=== PATIENT | female | born 1995 | race Caucasian/White ===

== ENCOUNTER → 2019-02-19 | Outpatient (CLI) | payer OTHER ==
[2019-02-19 10:34] LABS: HCG, SERUM QUANTITATIVE < 1.0 MIU/ML
[2019-02-19 15:37] LABS: PROGESTERONE 0.21 NG/ML
== END ==
LOC: M LAB 09:32
PROVIDERS: ATTEND Obstetrics & Gynecology
DX: Z31.41 Encounter for fertility testing (principal)

== ENCOUNTER → 2019-02-22 | Outpatient (CLI) | payer OTHER ==
--- NOTE | 2019-02-22 08:14 | REP ---
Transvaginal pelvic sonography: History: Follicle study. Fertility exam. Findings: Uterine dimensions are 9.0 x 3.4 x 5.7 cm. Endometrial stripe is 1.2 cm in thickness. There is a trace of fluid in the endometrial canal. Septate uterine morphology. Overall dimensions of the right ovary today are 3.6 x 2.5 x 4.5 cm. There are two follicles in the right ovary measuring greater than a centimeter: 1.2 x 0.8, and 1.0 x 0.7 cm. In addition, the right ovary contains 28 follicles ranging in size from 0.2-0.9 cm. The left ovary dimensions are 4.2 x 3.2 x 3.1 cm. There is a 2.0 x 1.7 cm follicle in the left ovary and 44 follicles are seen in the left ovary ranging in size from 0.3-0.8 cm. No other abnormality. Impression: Ovarian follicle exam as above. Electronically Signed by Bal Love MD 02/22/2019 08:06 A
[2019-02-22 08:37] LABS: ESTRADIOL 263.9 PG/ML; PROGESTERONE 0.31 NG/ML
== END ==
LOC: M RAD 06:57
PROVIDERS: ATTEND Obstetrics & Gynecology
DX: Z31.41 Encounter for fertility testing (principal); N83.01 Follicular cyst of right ovary; N83.02 Follicular cyst of left ovary; Q51.3 Bicornate uterus

== ENCOUNTER → 2019-03-09 | Outpatient (CLI) | payer OTHER | LOC: M LAB 09:18 | PROVIDERS: ATTEND Obstetrics & Gynecology | DX: Z32.00 Encounter for pregnancy test, result unknown (principal) ==

== ENCOUNTER → 2019-03-12 | Outpatient (CLI) | payer OTHER ==
[2019-03-12 09:15] LABS: HCG, SERUM QUANTITATIVE < 1.0 MIU/ML
[2019-03-12 10:31] LABS: ESTRADIOL 31.5 PG/ML
--- NOTE | 2019-03-12 11:21 | REP ---
TRANSVAGINAL PELVIC ULTRASOUND, FOLLICLE STUDY: Transvaginal pelvic ultrasound performed. Uterus measures 7.1 x 3.2 x 5.4 cm. Endometrial thickness is 5 mm. Trace free fluid is seen in the cul-de-sac. Right ovary measures 3.4 x 2.8 x 2.0 cm. Multiple subcentimeter follicles are seen in the right ovary between 3 and 7 mm. Left ovary measures 4.2 x 2.4 x 2.3 cm. Multiple subcentimeter follicles are seen measuring between 3 and 9 mm. Electronically Signed by Johnei Arvizu MD 03/12/2019 04:35 P
== END ==
LOC: M RAD 08:17
PROVIDERS: ATTEND Obstetrics & Gynecology
DX: Z31.41 Encounter for fertility testing (principal)

== ENCOUNTER → 2019-03-21 | Outpatient (CLI) | payer OTHER ==
[2019-03-21 09:30] LABS: ESTRADIOL 122.3 PG/ML; LUTEINIZING HORMONE 6.2 mIU/mL; PROGESTERONE 0.28 NG/ML
--- NOTE | 2019-03-21 13:38 | REP ---
Pelvic ultrasound, endovaginal imaging for follicle analysis: Right ovary: There is one follicle greater than 10 mm measuring 15 x 16 mm. Additionally, there are 25 follicle measuring 1.9 - 6.7 mm. Right ovary is normal size measuring 4.1 x 2.5 x 2.5 cm. Left ovary: There are three follicles greater than 10 mm as follows: 10 x 4.8 mm, 10 x 8.9 mm, 18.7 x 19.4 mm. Additionally, there are 28 follicles measuring 1.9 - 8.1 mm. Left ovary is normal size measuring 4.1 x 3.43 point 0 cm. The uterus is anteverted and normal size measuring 8.3 x 3.3 x 5.2 cm. The endometrium has a 7.9 ml and has a trilaminar appearance. Electronically Signed by Johnie Hoang MD 03/21/2019 01:28 P
== END ==
LOC: M RAD 07:34
PROVIDERS: ATTEND Obstetrics & Gynecology
DX: Z31.41 Encounter for fertility testing (principal)

== ENCOUNTER → 2019-04-07 | Outpatient (CLI) | payer OTHER | LOC: M LAB 09:34 | PROVIDERS: ATTEND Obstetrics & Gynecology | DX: Z32.00 Encounter for pregnancy test, result unknown (principal) ==

== ENCOUNTER → 2019-04-09 | Outpatient (CLI) | payer OTHER ==
[2019-04-09 08:39] LABS: THYROID STIMULATING HORMONE 2.03 uIU/ML (0.358-3.740)
== END ==
LOC: M LAB 07:35
PROVIDERS: ATTEND Obstetrics & Gynecology
DX: Z32.01 Encounter for pregnancy test, result positive (principal); Z3A.00 Weeks of gestation of pregnancy not specified

== ENCOUNTER → 2019-04-16 | Outpatient (CLI) | payer OTHER | LOC: M LAB 09:49 | PROVIDERS: ATTEND Obstetrics & Gynecology | DX: Z31.41 Encounter for fertility testing (principal) ==

== ENCOUNTER 2019-08-18 13:01 | Outpatient (CLI) | payer OTHER ==
[~2019-08-18] VITALS: Ht 165.1 cm; Wt 93.7 kg
[2019-08-18 13:16] VITALS: BP 128/69
--- NOTE | 2019-08-18 14:49 | REP ---
Obstetric sonography: History: Rupture of membranes. For estimated weight, cervical length and amniotic fluid. Findings: Scanning through the gravid uterus demonstrates a single intrauterine gestation in a cephalic lie. motion is observed and heart rate is recorded at 155 beats per minute. A posterior grade 0 placenta is seen. Amniotic fluid is subjectively significantly decreased. Closed cervical length measured transabdominally and transvaginally is 1.4 cm. No extrauterine abnormalities observed. There is some cervical funneling. The deepest pocket of amniotic fluid measured is 1.0 cm. The following anatomic structures are identified at the time of today's study and felt to be unremarkable: cranium, choroid plexus, cavum, cerebellum and posterior fossa, left-sided stomach, abdominal wall cord insertion, three-vessel cord, kidneys, bladder, spine, lower extremities. Biometry chart: BPD 5.9 cm = 24 weeks 1 day HC 21.9 cm = 23 weeks 6 days AC 19.4 cm = 24 weeks 1 day FL 4.2 cm = 23 weeks 4 days HL 3.9 cm = 24 weeks 0 days HC/AC ratio 1.13. Cephalic index normal 0.75. Estimated weight 642 grams, 1 pound 6 ounces, 71st percentile for 23 weeks 1 day. GABRIEL 1.0 cm (9.8 to 21.8 cm). Impression: Living single intrauterine gestation at 24 weeks 0 days by today's composite criteria. PORFIRIO by today's sonography December 08, 2019. Amniotic fluid is virtually absent. Cervical effacement 1.4 cm with some funneling. Electronically Signed by Bal Love MD 08/18/2019 03:15 P
[2019-08-18 14:51] LABS: HEMOGLOBIN 11.2 g/dl (12.0-15.5); MEAN CORPUSCULAR HEMOGLOBIN 27.2 pg (27.0-33.0); MEAN CORPUSCULAR HGB CONC 32.9 g/dl (32.0-36.5); MEAN CORPUSCULAR VOLUME 82.5 fl (80.0-96.0); PLATELET COUNT, AUTOMATED 292 10^3/uL (150-450); RED BLOOD COUNT 4.12 10^6/uL (4.00-5.40); WHITE BLOOD COUNT 10.8 10^3/uL (4.0-10.0)
[2019-08-18] MEDS ORDERED: BETAMETHASONE SOLUSPAN 6MG/ML INJ 5ML (J0702) As Ordered ONE (14:56)
[2019-08-18] MEDS ORDERED: BETAMETHASONE SOLUSPAN 6MG/ML INJ 5ML (J0702) IM SCH (15:15)
[2019-08-18] MEDS ORDERED: MAG SULF 1GM/100ML (MAG RUN) 1 GM in IV 1 EA IV SCH (15:15)
[2019-08-18] MEDS ORDERED: MAGNESIUM *L&D* 4 GM/100 ML BAG (40MG/ML) (J3475) As Ordered ONE (15:16)
[2019-08-18] MEDS ORDERED: MAGNESIUM *L&D* 4 GM/100 ML BAG (40MG/ML) (J3475) IV ONE (15:20)
[2019-08-18] MEDS ORDERED: AMPICILLIN 1 GM VIAL As Ordered ONE (15:28)
[2019-08-18] MEDS ORDERED: MAGNESIUM SULFATE 4% INJ 20GM/500ML (40MG/ML) (J3475) As Ordered ONE (15:28)
[2019-08-18] MEDS ORDERED: AMPICILLIN SOD 1 GM in D5W 50 ML IV ONE (15:30)
[2019-08-18] MEDS ORDERED: PRENTAB9 PO (15:38)
[2019-08-18] MEDS ORDERED: MAG SULF IV SCH (16:00)
[2019-08-18] MEDS ORDERED: AZITHROMYCIN INJ 500 MG, VIAL MATE ADAPTER 1 EACH in D5W 250 ML IV ONE (16:00)
--- NOTE | 2019-08-19 06:29 | HPE ---
DATE OF ADMISSION: 08/18/2019 HISTORY: 24-year-old, 1, para 0, last menstrual period (LMP) 03/10/2019, estimated date of confinement (EDC) 12/14/2019, at 23 and 1 weeks' of gestation woke up this morning after voiding and had a spontaneous rupture of membranes of clear liquor. No contractions. No discharge. She continued to leak until she came into labor and delivery. Her risk factors are her body mass index (BMI) is 33.11. She has an arcuate uterus. Her cervix on 07/26/2019 at her anatomy ultrasound, which was normal, was 2.98 cm. She also has a polycystic ovarian syndrome (PCOS) and primary infertility. Labs are A positive, HIV negative, hepatitis negative, RPR negative, rubella immune. Varicella immune. Urine was negative. Gonorrhea and chlamydia are negative. 1-hour glucose was 125. Her CF was negative. On examination, no distress. Symphysis fundus height is for 23 weeks, the category 1 strip with no contractions, moderate variability, normal baseline. No decelerations. The occasional acceleration was noted. Her ultrasound showed that she had an amniotic fluid index (GABRIEL) of 1.0, vertex presenting, estimated weight of 642 grams. Cervix was 1.4 cm with some funneling. heart rate was 155 beats per minute. Limited anatomy was found to be normal. Sonographically, the estimated gestational age is 24 weeks zero days. Our plan of management is as follows: Bee steroid complete betamethasone 12.5 mg every 12 hours times 24 hours, magnesium sulfate 4 grams IV bolus for neuro prophylaxis followed by 1 gram an hour for 24 hours, azithromycin 5 mg IV times one dose, ampicillin 1 gram IV times one dose prior to discharge to [facility]. We consulted Dr. James for transfer and after discussing the history he expressed positive consent to take the patient. We discussed with the patient risks and benefits of transfer, risks and benefits of staying, the idea of being that a level 3 nursery be more appropriate at previable at 23 weeks 1 day. Long-term is at the present time uncertain and this discussion will take place with the [facility] transfer physician. The rest the examination is unremarkable. Normocephalic, atraumatic. Neck full range of motion. Pupils equal and reactive to light. Distal pulses symmetric. No evidence of deep venous thrombosis (DVT), pulmonary embolism (PE) or superficial phlebitis. Chest is clear bilaterally to bases. No wheezes or rhonchi. No costovertebral angle (CVA) tenderness. Abdomen soft, four quadrant bowel sounds are noted. She does have some facial piercings and some acne and a bit of hirsutism. She is not complaining of cough, wheezes, shortness of breath or dyspnea on exertion. No nausea, vomiting, diarrhea or constipation. She has no diabetic issues. Endocrinopathy issues are PCOS. She does not smoke, drink, abuse drugs. She is to soldier. No domestic violence. In summary, we have a 23 and 1 week of gestation with no contractions, no bleeding, but defined spontaneous rupture of membranes both by ultrasound and Nitrazine was positive. The patient is presently in the transition mode for transfer.
== END 2019-08-18 16:05 ==
LOC: M LDO 13:01
PROVIDERS: ATTEND Obstetrics & Gynecology
DX: O42.912 Preterm premature rupture of membranes, unspecified as to length of time between rupture and onset of labor, second trimester (principal); O34.592 Maternal care for other abnormalities of gravid uterus, second trimester; Q51.810 Arcuate uterus; O34.82 Maternal care for other abnormalities of pelvic organs, second trimester; E28.2 Polycystic ovarian syndrome; O09.02 Supervision of pregnancy with history of infertility, second trimester; Z3A.23 23 weeks gestation of pregnancy; Z68.33 Body mass index [BMI] 33.0-33.9, adult
CPT/HCPCS: 36415; 76811; 76817; 85027; 96374; 96375; G0378; G0463; J0456; J0702; J3475

== ENCOUNTER 2020-01-16 10:00 | Emergency (ER) | payer OTHER ==
[~2020-01-16 10:00] MED LIST: PRENTAB9 PO
--- NOTE | 2020-02-28 17:13 | ECGEPIP ---
NORMAL SINUS RHYTHM NONSPECIFIC ST & T-WAVE CHANGES SEE SCANNED DOWNTIME REPORT MTDD
[2020-03-02 11:34] LABS: BASO % 0.3 % (0.0-1.0); EOS # 0.1 10^3/uL (0.0-0.5); HEMATOCRIT 45.6 % (36.0-47.0); HEMOGLOBIN 14.4 g/dl (12.0-15.5); LYMPH # 2.6 10^3/uL (1.5-5.0); LYMPH % 27.4 % (24.0-44.0); MEAN CORPUSCULAR HEMOGLOBIN 26.1 pg (27.0-33.0); MEAN CORPUSCULAR HGB CONC 31.6 g/dl (32.0-36.5); MEAN CORPUSCULAR VOLUME 82.8 fl (80.0-96.0); MONO # 0.5 10^3/uL (0.0-0.8); MONO % 5.1 % (0.0-5.0); NEUTROPHILS # 6.3 10^3/uL (1.5-8.5); PLATELET COUNT, AUTOMATED 366 10^3/uL (150-450); RED BLOOD COUNT 5.51 10^6/uL (4.00-5.40); WHITE BLOOD COUNT 9.6 10^3/uL (4.0-10.0)
[2020-04-11 14:14] LABS: ALBUMIN 4.2 GM/DL (3.2-5.2); ALT/SGPT 24 U/L (12-78); BILIRUBIN,DIRECT < 0.1 MG/DL (0.0-0.2); BILIRUBIN,TOTAL 0.3 MG/DL (0.2-1.0); BLOOD UREA NITROGEN 16 MG/DL (7-18); CALCIUM LEVEL 9.7 MG/DL (8.5-10.1); CARBON DIOXIDE LEVEL 30 MEQ/L (21-32); CHLORIDE LEVEL 105 MEQ/L (98-107); CREATININE FOR GFR 0.95 MG/DL (0.55-1.30); GLOMERULAR FILTRATION RATE > 60.0 (>60); GLUCOSE, FASTING 88 MG/DL (70-100); LIPASE 104 U/L (73-393); SODIUM LEVEL 138 MEQ/L (136-145); TOTAL PROTEIN 7.7 GM/DL (6.4-8.2)
[2020-04-11 14:15] LABS: HCG, SERUM QUALITATIVE NEGATIVE (NEGATIVE)
== END 2020-01-16 16:20 | disposition home or self-care (01) ==
LOC: M ED 10:00
DX: K80.20 Calculus of gallbladder without cholecystitis without obstruction (principal)

== ENCOUNTER 2020-03-18 08:19 | Day surgery (SDC) | payer OTHER ==
[~2020-03-18] VITALS: Ht 165.1 cm; Wt 88.8 kg
[~2020-03-18 08:19] MED LIST changes: +KETOROLAC 60MG 2ML VIAL As Ordered ONE; +LIDOCAINE 2% 100MG/5ML SDV (FOR ANES.) As Ordered ONE; +LR 1,000 ML IV ONE; +MIDAZOLAM INJ 2MG/2ML VIAL (J2250 PER 1MG) As Ordered ONE; +ONDANSETRON 4MG/2ML VIAL As Ordered ONE; +ROCURONIUM BROMIDE 50 MG/5 ML VIAL As Ordered ONE; +SUGAMMADEX SODIUM 500 MG/5 ML VIAL (BRIDION) As Ordered ONE; +ceFAZolin SOD 1 GM in D5W MINI-BAG PLUS 50 ML IV ONE; +dexameTHASONE 4 MG/ML 1ML VIAL (J1100 PER 1MG) As Ordered ONE; +fentaNYL 100 MCG/2 ML INJECTION (J3010) As Ordered ONE; +propofoL 200 MG/20 ML VIAL As Ordered ONE
[2020-03-18] MEDS ORDERED: BUPIVACAINE/EPIN 0.25% 30 ML VIAL As Ordered ONE (09:53)
[2020-03-18] MEDS ORDERED: fentaNYL 100 MCG/2 ML INJECTION (J3010) As Ordered ONE ×2 (10:34→11:26)
[2020-03-18] MEDS ORDERED: ROCURONIUM BROMIDE 50 MG/5 ML VIAL As Ordered ONE (10:40)
[2020-03-18] MEDS ORDERED: LR 1,000 ML IV SCH ×2 (11:15→11:45)
[2020-03-18] MEDS ORDERED: traMADol 50 MG TAB PO PRN (11:15)
[2020-03-18] MEDS ORDERED: oxyCODONE 5MG TAB As Ordered ONE (11:25)
[2020-03-18] MEDS: fentaNYL 100 MCG/2 ML INJECTION (J3010) IV PRN ×4 (11:30→11:49)
[2020-03-18] MEDS: oxyCODONE 5MG TAB PO PRN ×2 (11:36→12:06)
[2020-03-18] MEDS ORDERED: ONDANSETRON 4MG/2ML VIAL IV PRN (11:45)
[2020-03-18 13:10] VITALS: BP 130/79
--- NOTE | 2020-04-15 07:33 | RO ---
DATE OF OPERATION: 03/18/2020 PREOPERATIVE DIAGNOSIS: History of symptomatic gallstones/cholecystitis. POSTOPERATIVE DIAGNOSIS: History of symptomatic gallstones/cholecystitis. PROCEDURE: Laparoscopic cholecystectomy. SURGEON: Bonilla Judd M.D. ANESTHESIA: General endotracheal anesthesia. ESTIMATED BLOOD LOSS: Minimal. FLUIDS: Crystalloid. BRIEF PROCEDURE SUMMARY: The patient was brought to the operating room and was given general anesthesia. After adequate anesthesia and preoperative antibiotics were given, the patient was prepped and draped in the usual sterile fashion. Next, a periumbilical incision was made with the skin knife. Blunt dissection was carried down to the fascia. The fascia was entered with a Veress needle and insufflated to 15 mm of pressure. A dilating 10-mm trocar was placed, and under direct visualization, an epigastric and two lateral trocars were placed. The patient was placed in the reverse Trendelenburg position. The gallbladder was grasped and retracted superiorly. There were some omentum/adhesions up against the gallbladder/neck of the gallbladder, but overall, no significant inflammatory changes at this time. There was a little bit of edema in the gallbladder wall, which was seen and noticed during dissection. However, the peritoneum was taken down on the lateral side and then across the anterior surface of the neck of the gallbladder, and then medially to the cystic duct and cystic duct node area. Once this was identified better and a window on the lateral side was created quite nicely and then across the front and then a window between the cystic artery and cystic duct was created, a good critical view of safety was obtained. The cystic artery was clipped proximally and distally and transected. The window behind the neck of the gallbladder was even enlarged at this time making a much more visible critical view of safety and the cystic duct was clipped proximally and distally and transected. The gallbladder was removed from the gallbladder bed, brought out in an EndoCatch bag through the umbilicus. The right upper quadrant was copiously irrigated until clear. All trocars were removed under direct visualization. Then, 0-Vicryl was used to close the fascia at the umbilicus and all incisions were closed with 4-0 Vicryl. Steri-Strips and a dry sterile dressing were applied. The patient was awakened and extubated and brought to the recovery room awake, alert, and hemodynamically stable. Sponge and needle counts were correct x2. MTDD
== END 2020-03-18 13:27 | disposition home or self-care (01) ==
LOC: M SDC 08:19
PROVIDERS: ATTEND Surgery
DX: K80.10 Calculus of gallbladder with chronic cholecystitis without obstruction (principal); E28.2 Polycystic ovarian syndrome; F41.9 Anxiety disorder, unspecified; F32.9 Major depressive disorder, single episode, unspecified
CPT/HCPCS: 47562; 81025; 88304; J0690; J1100; J1885; J2250; J2405; J3010

== ENCOUNTER → 2020-04-09 | Outpatient (CLI) | payer OTHER ==
[~2020-04-09] MED LIST changes: +ISOVUE-370 76% 100ML VIAL As Ordered ONE; -KETOROLAC 60MG 2ML VIAL As Ordered ONE; -LIDOCAINE 2% 100MG/5ML SDV (FOR ANES.) As Ordered ONE; -LR 1,000 ML IV ONE; -MIDAZOLAM INJ 2MG/2ML VIAL (J2250 PER 1MG) As Ordered ONE; -ONDANSETRON 4MG/2ML VIAL As Ordered ONE; -ROCURONIUM BROMIDE 50 MG/5 ML VIAL As Ordered ONE; -SUGAMMADEX SODIUM 500 MG/5 ML VIAL (BRIDION) As Ordered ONE; -ceFAZolin SOD 1 GM in D5W MINI-BAG PLUS 50 ML IV ONE; -dexameTHASONE 4 MG/ML 1ML VIAL (J1100 PER 1MG) As Ordered ONE; -fentaNYL 100 MCG/2 ML INJECTION (J3010) As Ordered ONE; -propofoL 200 MG/20 ML VIAL As Ordered ONE
--- NOTE | 2020-04-09 12:51 | ROOPDOC ---
[facility] Report Of Operation Report of Operation DATE OF PROCEDURE: 04/09/20 REPRODUCTIVE ENDOCRINOLOGY HSG PROCEDURE NOTE PRE-PROCEDURE DIAGNOSIS: 1) Infertility 2) Possible septate vs arcuate uterus based on prior evaluation POST-PROCEDURE DIAGNOSIS: Same PHYSICIAN PERFORMING PROCEDURE: Paolo Mendosa DO CONSENT: The HSG procedure, indication, risks, and benefits were discussed with the patient and informed written consent was obtained. PATIENT COUNSELLED IN REGARDS TO HSG RISKS AND BENEFITS TO INCLUDE INFECTION, DISRUPTION OF , BLEEDING, AND PAIN. FINAL TIME OUT PERFORMED IMMEDIATELY PRIOR TO HSG. PROCEDURE: STERILE SPECULUM PLACED CERVIX CLEANSED WITH BETADINE TRIPLE SWAB UTERUS SOUNDED TO 8CM TENACULUM UTILIZED (YES ) HSG CATHETER PASSED, BALLOON INFLATED APPROX 50mL OF ISOVUE CONTRAST WAS INFUSED AP AND OBLIQUE IMAGES WERE OBTAINED PRELIMINARY FINDINGS: 1) UTERINE FINDINGS septate vs bicornuate uterus 2) LEFT FALLOPIAN TUBE PATENT 3) RIGHT FALLOPIAN TUBE PATENT PATIENT TOLERATED THE PROCEDURE WELL DISCHARGED TO HOME WITH PRECAUTIONS ANTIBIOTICS RECOMMENDED: NO COMPLICATIONS: NONE DISCHARGE INSTRUCTIONS GIVEN PATIENT TO F/U WITH ORDERING PROVIDER FOR FINAL IMPRESSION AND CLINICAL CORRELATION APPROX TIME: 10 MIN COUNSELLING [address] Restrepo present at procedure PAOLO MENDOSA DO Apr 09, 2020 12:51
--- NOTE | 2020-04-09 17:05 | REP ---
INDICATION: INFERTILITY. COMPARISON: None. TECHNIQUE: The endometrium was cannulated by the referring sales appointment coordinator and contrast was injected under fluoroscopic guidance. 0.7 minutes of fluoroscopy was utilized. Study was recorded by THO Borrero FINDINGS: Contrast fills a smooth endometrium. There is an indentation of the superior wall of the endometrium giving the uterus a bicornuate configuration. There is prompt symmetric filling of the isthmic and ampullary segments of the fallopian tubes bilaterally. Prompt bilateral and symmetric peritoneal spillage was documented. IMPRESSION: 1. Bicornuate uterus. 2. Bilateral tubal patency is documented. No other abnormality. <Electronically signed by Hipolito Love > 04/09/20 [id number]
== END ==
LOC: M RADPRO 11:43
PROVIDERS: ATTEND Obstetrics & Gynecology
DX: N97.9 Female infertility, unspecified (principal); E28.2 Polycystic ovarian syndrome; Q51.3 Bicornate uterus
CPT/HCPCS: 58340; 74740; Q9967

== ENCOUNTER → 2020-04-22 | Outpatient (CLI) | payer OTHER ==
[~2020-04-22] MED LIST changes: -ISOVUE-370 76% 100ML VIAL As Ordered ONE
--- NOTE | 2020-04-22 09:26 | REP ---
INDICATION: BICORNUATE UTERUS ANATOMY SHAPE. COMPARISON: Hysterosalpingogram 04/09/2020, ultrasound 03/21/2019 TECHNIQUE: Axial T1 with fat suppressed T1 and T2 coronal images, sagittal fat-suppressed and standard T2 and angled axial T2 coronal to the fundus were provided diffusion-weighted images were also obtained in that same coronal plane to the uterus. FINDINGS: Uterus is not enlarged. It has a length of 8.1 by AP 3.6 by 6.2 cm transverse. The central endometrial stripe is homogeneous and hyperintense on the T2 sequence submucosal region is slightly hypointense and myometrium homogeneous and without mass. There is no uterine contour abnormality. The fundal contour is rounded and not depressed. With particular attention to the T2 and diffusion-weighted images coronal to the plane of the uterus, the uterine configuration is arcuate. I do not see a septum. The ovaries are not enlarged and show numerous subcentimeter follicles bilaterally as on the endovaginal ultrasound 03/21/2019. No adnexal mass. There is no fluid in the cul-de-sac. See no pelvic lymphadenopathy. Visualized bones unremarkable bladder partially filled. No dilated bowel loops inguinal or pelvic lymphadenopathy nor other significant finding IMPRESSION: Confirmation that the uterine anatomic findings represent arcuate uterus with a rounded fundal contour; no septum or separate horns to suggest a bicornuate uterus. Bilateral ovaries show numerous subcentimeter follicles throughout. No pelvic free fluid. Nothing acute. <Electronically signed by King Burnette > 04/22/20 [id number]
== END ==
LOC: M RAD 07:30
PROVIDERS: ATTEND Obstetrics & Gynecology
DX: Q51.3 Bicornate uterus (principal)

== ENCOUNTER → 2020-10-22 | Outpatient (CLI) | payer OTHER ==
[2020-10-22 12:02] LABS: HCG, SERUM QUANTITATIVE < 1.0 MIU/ML
[2020-10-22 13:10] LABS: ESTRADIOL 38.2 PG/ML
== END ==
LOC: M LAB 10:46
PROVIDERS: ATTEND Obstetrics & Gynecology
DX: Z32.00 Encounter for pregnancy test, result unknown (principal); Z31.41 Encounter for fertility testing

== ENCOUNTER → 2020-10-30 | Outpatient (CLI) | payer OTHER ==
--- NOTE | 2020-10-30 10:00 | REP ---
INDICATION: INFERTILITY- STAT LABS AFTER COMPARISON: 03/21/2019 TECHNIQUE: Transvaginal pelvic ultrasound for detailed evaluation of the uterus and adnexa. FINDINGS: Normal anteverted uterus measures 8.2 x 3.9 x 6.4 cm. The endometrial complex measures 7.3 mm thickness. No discrete uterine or endometrial abnormalities are appreciated. Right ovary measures 4.2 x 2.7 x 2.8 cm and includes 8 x 13 mm follicle along with 14 subcentimeter follicles measuring between 2.4 and 8.9 mm. Left ovary measures 4.8 x 3.3 x 3.1 cm and includes 16 x 17 mm and 10 x 7 mm follicles along with approximately 30 subcentimeter follicles measuring between 2.3 and 8.9 mm. IMPRESSION: Predominantly subcentimeter follicles noted. <Electronically signed by Dannie Rodríguez > 10/30/20 [id number]
[2020-10-30 13:17] LABS: ESTRADIOL 66.9 PG/ML; LUTEINIZING HORMONE 6.3 mIU/mL; PROGESTERONE 0.4 NG/ML
== END ==
LOC: M RAD 09:18
PROVIDERS: ATTEND Obstetrics & Gynecology
DX: Z31.41 Encounter for fertility testing (principal)

== ENCOUNTER → 2020-11-03 | Outpatient (CLI) | payer OTHER ==
--- NOTE | 2020-11-03 10:59 | REP ---
INDICATION: ENCOUNTER FOR FERTILITY TESTING/LABS 1ST COMPARISON: 10/30/2020 TECHNIQUE: Transabdominal and transvaginal pelvic ultrasound. FINDINGS: Anteverted uterus measures 9.4 x 4.7 x 6.2 cm. The endometrial complex measures 11 mm thickness. Right ovary measures 4.9 x 2.1 x 3.4 cm and includes 11 mm follicle along with 10 subcentimeter follicles between 3 and 8 mm. Left ovary measures 4.6 x 3.1 x 3.1 cm and includes 24 mm follicle along with roughly 30 subcentimeter follicles between 2 and 8 mm. IMPRESSION: Primarily subcentimeter follicles as described above. <Electronically signed by Dannie Rodríguez > 11/03/20 [id number]
[2020-11-03 13:17] LABS: ESTRADIOL 239.6 PG/ML; LUTEINIZING HORMONE 44.3 mIU/mL; PROGESTERONE 0.71 NG/ML
== END ==
LOC: M RAD 10:12 → M LAB 10:12
PROVIDERS: ATTEND Obstetrics & Gynecology Reproductive Endocrinology
DX: Z31.41 Encounter for fertility testing (principal)

== ENCOUNTER → 2020-11-19 | Outpatient (CLI) | payer OTHER ==
--- NOTE | 2020-11-19 11:10 | REP ---
INDICATION: INFERTILITY PT HAS LABS AFTER. COMPARISON: 11/03/2020. TECHNIQUE: Transvaginal pelvic ultrasound performed to evaluate ovarian follicles. FINDINGS: The uterus measures 8.9 x 4.0 x 6.4 cm. The endometrial thickness is approximately 5 mm. Trace free fluid is seen in the posterior cul-de-sac. Right ovary measures 4.1 x 2.6 x 2.8 cm. Multiple subcentimeter follicles are seen in the right ovary. Left ovary measures 4.8 x 2.2 x 2.4 cm. There is a 12 x 6 mm dominant follicle present. Multiple subcentimeter follicles are also present in the left ovary. There is a cystic structure in the left ovary 12 x 6 mm which contains thin internal septations and low-level echoes. IMPRESSION: Ovarian follicles as discussed above. <Electronically signed by Johnie Arvizu > 11/19/20 1103
[2020-11-19 12:11] LABS: HCG, SERUM QUANTITATIVE < 1.0 MIU/ML
[2020-11-19 12:30] LABS: ESTRADIOL 43.5 PG/ML
== END ==
LOC: M LAB 10:29
PROVIDERS: ATTEND Obstetrics & Gynecology
DX: Z31.41 Encounter for fertility testing (principal)

== ENCOUNTER → 2020-11-28 | Outpatient (CLI) | payer OTHER ==
--- NOTE | 2020-11-28 09:20 | REP ---
INDICATION: INFERTILITY COMPARISON: None. TECHNIQUE: Transvaginal pelvic ultrasound. FINDINGS: Anteverted uterus measures 8.1 x 4.2 x 6.1 cm. The endometrial complex measures 9.8 mm thickness. Small amount of free fluid in the left hemipelvis noted. Right ovary measures 5.1 x 3.5 x 3.6 cm and includes 18 x 21 mm follicle and roughly 29 sub cm follicles measuring between 2.3 and 6.8 mm. Left ovary measures 4.0 x 2.1 x 2.3 cm and includes 28 sub cm follicles measuring between 2.0 and 8.9 mm. IMPRESSION: Predominantly subcentimeter follicles. <Electronically signed by Dannie Rodríguez > 11/28/20 [id number]
[2020-11-28 09:51] LABS: ESTRADIOL 113.3 PG/ML; PROGESTERONE 0.24 NG/ML
== END ==
LOC: M LAB 08:27 → M RAD 08:27
PROVIDERS: ATTEND Obstetrics & Gynecology
DX: Z31.41 Encounter for fertility testing (principal); N83.00 Follicular cyst of ovary, unspecified side

== ENCOUNTER → 2020-12-16 | Outpatient (CLI) | payer OTHER | LOC: M LAB 09:02 | PROVIDERS: ATTEND Obstetrics & Gynecology | DX: Z32.00 Encounter for pregnancy test, result unknown (principal) ==

== ENCOUNTER → 2020-12-18 | Outpatient (CLI) | payer OTHER ==
[2020-12-18 10:12] LABS: THYROID STIMULATING HORMONE 1.92 uIU/ML (0.358-3.740)
== END ==
LOC: M LAB 08:58
PROVIDERS: ATTEND Nurse Practitioner
DX: Z31.41 Encounter for fertility testing (principal)

== ENCOUNTER → 2020-12-25 | Outpatient (CLI) | payer OTHER | LOC: M LAB 09:31 | PROVIDERS: ATTEND Obstetrics & Gynecology | DX: Z31.41 Encounter for fertility testing (principal) ==

== ENCOUNTER → 2021-03-11 | Outpatient (CLI) | payer OTHER ==
--- NOTE | 2021-03-11 11:50 | REP ---
INDICATION: CERVIX LENGTH PREG 16+ WKS COMPARISON: None. TECHNIQUE: Transabdominal and transvaginal obstetrical ultrasound with color Doppler evaluation. FINDINGS: Examination demonstrates a single live intrauterine in variable/breech presentation. motion is identified by technologist. Placenta is noted posteriorly and grade 0 without evidence for placenta previa or abruption. Amniotic fluid volume is normal. Cervix measures 4.1 cm in length and appears closed. While there is no evidence for Vasa previa, technologist notes a presumed maternal vein in the myometrium adjacent to the cervical os. Selected gestational age: 16 weeks 3 days with PORFIRIO 08/23/2021. FHR equals 171 beats per minute. IMPRESSION: Cervix measures 4.1 cm in length and appears closed. Technologist describes a maternal vein adjacent to the cervical os, but no obvious evidence for Vasa previa. Consider short-term re-evaluation at the time of anatomical assessment. <Electronically signed by Dannie Rodríguez > 03/11/21 [id number]
== END ==
LOC: M RAD 10:54
PROVIDERS: ATTEND Obstetrics & Gynecology
DX: Z34.92 Encounter for supervision of normal pregnancy, unspecified, second trimester (principal); Z3A.16 16 weeks gestation of pregnancy

== ENCOUNTER 2021-08-08 22:24 | Outpatient (CLI) | payer OTHER ==
[~2021-08-08] VITALS: Ht 165.1 cm; Wt 100.0 kg
[2021-08-08 22:43] VITALS: BP 128/80
[2021-08-08] MEDS ORDERED: MAGN400C2 PO (22:46)
[2021-08-08] MEDS ORDERED: HOME MED LIST COMPLETE! XX SCH (22:50)
[2021-08-09] MEDS ORDERED: FLUCONAZOLE 50MG TABLET PO ONE
[2021-08-13] MEDS ORDERED: STOO100C25 PO (10:43)
== END 2021-08-08 23:40 | disposition home or self-care (01) ==
LOC: M LDO 22:24
PROVIDERS: ATTEND Advanced Practice Midwife
DX: O26.893 Other specified pregnancy related conditions, third trimester (principal); Z3A.37 37 weeks gestation of pregnancy; R25.2 Cramp and spasm; O34.211 Maternal care for low transverse scar from previous cesarean delivery; Z87.51 Personal history of pre-term labor
CPT/HCPCS: 59025; G0378; G0463

== ENCOUNTER 2021-08-18 00:40 | Inpatient (IN) | payer OTHER ==
[~2021-08-18] VITALS: Ht 165.1 cm; Wt 103.5 kg
[2021-08-18] VITALS (11 sets, daily range): BP systolic 117–180; BP diastolic 57–89
[~2021-08-18 00:40] MED LIST changes: +MAGN400C2 PO; +STOO100C25 PO
[2021-08-18] MEDS ORDERED: ceFAZolin SOD 2 GM in IV 1 EA IV ONE (01:40)
[2021-08-18] MEDS ORDERED: LR 1,000 ML IV SCH (01:40)
[2021-08-18] MEDS ORDERED: AZITHROMYCIN INJ 500 MG, VIAL MATE ADAPTER 1 EACH in NS 250 ML IV ONE (01:50)
[2021-08-18 02:18] LABS: HEMATOCRIT 40.1 % (36.0-47.0); MEAN CORPUSCULAR HEMOGLOBIN 25.7 pg (27.0-33.0); MEAN CORPUSCULAR HGB CONC 32.4 g/dl (32.0-36.5); MEAN CORPUSCULAR VOLUME 79.2 fl (80.0-96.0); PLATELET COUNT, AUTOMATED 246 10^3/uL (150-450); RED BLOOD COUNT 5.06 10^6/uL (4.00-5.40); WHITE BLOOD COUNT 10.5 10^3/uL (4.0-10.0)
[2021-08-18] MEDS ORDERED: OXYTOCIN INJ 10 UNITS/ML VIAL (J2590) As Ordered ONE (03:41)
[2021-08-18] MEDS ORDERED: MORPHINE PRES-FREE INJ 10 MG/10 ML VIAL (J2274) As Ordered ONE (03:42)
[2021-08-18] MEDS ORDERED: ONDANSETRON 4MG/2ML VIAL IV PRN ×3 (04:02→06:20)
[2021-08-18] MEDS ORDERED: METOCLOPRAMIDE INJ 10MG/2ML VIAL (J2765 PER 1) IV PRN (04:02)
[2021-08-18] MEDS ORDERED: NALBUPHINE HCL 10 MG/ML AMP (J2300) IV PRN ×2 (04:02→06:20)
[2021-08-18] MEDS ORDERED: diphenhydrAMINE 50MG/ML VIAL (J1200) IV PRN (04:02)
[2021-08-18] MEDS ORDERED: NALOXONE INJ 0.4MG/1ML VIAL (J2310 PER 1MG) IV PRN ×2 (04:02)
[2021-08-18] MEDS ORDERED: PHENYLephrine 500MCG 5ML (100MCG/ML) SYRINGE As Ordered ONE (04:10)
[2021-08-18] MEDS ORDERED: ONDANSETRON 4MG/2ML VIAL As Ordered ONE (04:28)
[2021-08-18] MEDS ORDERED: dexameTHASONE 4 MG/ML 1ML VIAL (J1100 PER 1MG) As Ordered ONE (04:28)
[2021-08-18] MEDS ORDERED: METOCLOPRAMIDE INJ 10MG/2ML VIAL (J2765 PER 1) As Ordered ONE (04:32)
[2021-08-18 04:46] LABS: CORD GAS ABE A -9.3; CORD GAS ABE V -7.4; CORD GAS HCO3 A 22.8 MEQ/L; CORD GAS HCO3 V 22.2 MEQ/L; CORD GAS O2 SAT A 43.1 %; CORD GAS O2 SAT V 38.5 %; CORD GAS PCO2 A 79.5 mmHg; CORD GAS PH A 7.075 UNITS; CORD GAS PH V 7.171 UNITS; CORD GAS PO2 A 24.8 mmHg; CORD GAS PO2 V 20.5 mmHg; CORD GAS SBC V 17.2 MEQ/L; CORD GAS TCO2 A 25.2 MEQ/L; CORD GAS TCO2 V 24.1 MEQ/L
[2021-08-18] MEDS ORDERED: OXYTOCIN 30 UNITS IN 0.9% NaCl 500ML IV BAG (J2590) As Ordered ONE (04:58)
[2021-08-18] MEDS ORDERED: KETOROLAC 60MG 2ML VIAL As Ordered ONE (05:00)
[2021-08-18] MEDS ORDERED: SIMETHICONE 80MG CHEW TAB PO PRN (05:30)
[2021-08-18] MEDS ORDERED: MEASLES,MUMPS,RUBELLA VACCINE INJ (MMR-II) (90707) SC SCH (05:30)
[2021-08-18] MEDS ORDERED: ACETAMINOPHEN TAB 650MG DOSE (2X325MG) PO PRN (05:30)
[2021-08-18] MEDS ORDERED: OXYTOCIN DRIP 30 UNITS in IV 1 EA IV SCH (05:30)
[2021-08-18] MEDS ORDERED: ANUSOL HC CREAM 30GM TOP PRN (05:30)
[2021-08-18] MEDS ORDERED: RHOGAM 300 MCG (1500 IU) INJ (J2790) IM SCH (05:30)
[2021-08-18] MEDS ORDERED: MORPHINE 4 MG/ML 1ML VIAL/SYRINGE (J2270) IV PRN (05:30)
[2021-08-18] MEDS ORDERED: ACETAMINOPHEN 500 MG TAB PO PRN (05:30)
[2021-08-18] MEDS ORDERED: oxyCODONE 5MG TAB PO PRN ×3 (05:30→06:20)
[2021-08-18] MEDS ORDERED: HYDROMORPHONE HCL 0.5 MG/ 0.5 ML SYRINGE (J1170 PER 1) IV PRN (06:20)
[2021-08-18] MEDS ORDERED: MEPERIDINE INJ 25 MG/ML VIAL (J2175) IV PRN (06:20)
[2021-08-18] MEDS ORDERED: fentaNYL 100 MCG/2 ML INJECTION IV PRN (06:20)
[2021-08-18] MEDS: DOCUSATE SODIUM 100MG CAPSULE PO SCH ×2 (07:17→20:17)
[2021-08-18] MEDS: PRENATAL VITAMINS CHEWABLE TABLET PO SCH (07:17)
[2021-08-18] MEDS: KETOROLAC 30 MG/ML 1ML VIAL IV SCH ×3 (10:57→23:39)
[2021-08-18] MEDS ORDERED: LR 1,000 ML IV ONE ×2 (13:35→13:50)
[2021-08-18] MEDS: LR 1,000 ML IV SCH (20:26)
[2021-08-19 02:00] VITALS: BP 135/78
[2021-08-19] MEDS: LR 1,000 ML IV SCH ×2 (04:06→13:30)
[2021-08-19 06:00] VITALS: BP 125/61
[2021-08-19] MEDS: IBUPROFEN 800 MG TAB PO SCH ×3 (06:51→23:15)
[2021-08-19 07:11] LABS: HEMATOCRIT 30.6 % (36.0-47.0); MEAN CORPUSCULAR HEMOGLOBIN 26.3 pg (27.0-33.0); MEAN CORPUSCULAR HGB CONC 32.4 g/dl (32.0-36.5); MEAN CORPUSCULAR VOLUME 81.4 fl (80.0-96.0); PLATELET COUNT, AUTOMATED 210 10^3/uL (150-450); RED BLOOD COUNT 3.76 10^6/uL (4.00-5.40)
[2021-08-19 07:18] LABS: HEMOGLOBIN 9.9 g/dl (12.0-15.5)
[2021-08-19] MEDS: DOCUSATE SODIUM 100MG CAPSULE PO SCH ×2 (09:01→20:19)
[2021-08-19] MEDS: PRENATAL VITAMINS CHEWABLE TABLET PO SCH (09:01)
[2021-08-19 10:00] VITALS: BP 137/61
[2021-08-19 14:00] VITALS: BP 116/57
[2021-08-19 18:16] VITALS: BP 127/72
[2021-08-19 22:00] VITALS: BP 127/75
[2021-08-20 02:00] VITALS: BP 119/68
[2021-08-20 06:00] VITALS: BP 121/58
[2021-08-20] MEDS: IBUPROFEN 800 MG TAB PO SCH (06:35)
[2021-08-20] MEDS ORDERED: COLA100C5 PO (07:44)
[2021-08-20] MEDS ORDERED: ACET-683 PO (07:44)
[2021-08-20] MEDS: PRENATAL VITAMINS CHEWABLE TABLET PO SCH (09:11)
[2021-08-20] MEDS: DOCUSATE SODIUM 100MG CAPSULE PO SCH (09:11)
== END 2021-08-20 11:25 | disposition home or self-care (01) | DRG 773 ==
LOC: M LDO 00:40 → M LDI 01:31 → M OBS 06:41
PROVIDERS: ADMIT Obstetrics & Gynecology; ATTEND Obstetrics & Gynecology
PROC: 10D00Z1 Extraction of Products of Conception, Low, Open Approach (ICD-10-PCS; principal; 2021-08-18 03:48)
DX: O34.211 Maternal care for low transverse scar from previous cesarean delivery (principal); Z3A.39 39 weeks gestation of pregnancy; O75.82 Onset (spontaneous) of labor after 37 completed weeks of gestation but before 39 completed weeks gestation, with delivery by (planned) cesarean section; O77.0 Labor and delivery complicated by meconium in amniotic fluid; Z37.0 Single live birth